=== PATIENT | female | born 1950 | race Two or more races ===

== ENCOUNTER 2021-05-15 08:00 | Outpatient (CLI) | payer OTHER | END 2021-05-15 08:30 | disposition home or self-care (01) | LOC: PPH VACUNA 08:00 | PROVIDERS: ATTEND Emergency Medicine Pediatric Emergency Medicine | DX: Z23 Encounter for immunization (principal) ==

== ENCOUNTER 2021-05-20 09:46 | Outpatient (CLI) | payer OTHER | END 2021-05-20 09:55 | disposition home or self-care (01) | LOC: RAD 09:46 | PROVIDERS: ATTEND Physical Medicine & Rehabilitation | DX: M17.11 Unilateral primary osteoarthritis, right knee (principal); M54.5 Low back pain ==